=== PATIENT | male | born 1950 | race Caucasian/White ===

== ENCOUNTER → 2021-10-31 | Outpatient (CLI) | payer MEDICARE, OTHER ==
[~2021-10-31] MED LIST: BENEFIBER475 GM PO; CATAPRES 0.1MG0.1 MG PO; COLCHICINE 0.60.6 MG PO; CYMBALTA60 MG PO; HUMIRA 4040 MG/0.8 SQ; KLONOPIN TAB 00.5 MG PO; MEDROL4 MG PO; NORCO 7.5-3251 EACH PO; PAXIL40 MG PO; POTASSIUM CITR10 MEQ PO; PREDNISONE10 MG PO; TRENTAL 400 MG400 MG PO; ZANTAC 150 MG150 MG PO
[2021-11-01 11:16] LABS: CREATININE, URINE 191.7 mg/dL (Not Estab.)
== END ==
LOC: LAB 09:32
PROVIDERS: Internal Medicine Nephrology
DX: N18.31 Chronic kidney disease, stage 3a (principal); N25.81 Secondary hyperparathyroidism of renal origin
CPT/HCPCS: 36415; 80048; 81001; 82043; 82570; 83970; 84100